=== PATIENT | male | born 1990 | race Caucasian/White ===

== ENCOUNTER 2023-09-24 15:10 | Emergency (ER) | payer OTHER ==
[~2023-09-24] VITALS: Ht 165.1 cm; Wt 83.9 kg
[~2023-09-24 15:10] MED LIST: IBUP-1842 PO
[2023-09-24 15:18] VITALS: BP 160/108; PULSE 90; RESP 16; TEMP 98.8; O2SAT 100
[2023-09-24 16:56] LABS: APPEARANCE,URINE CLEAR (CLEAR); BILIRUBIN,URINE NEGATIVE (NEGATIVE); BLOOD, URINE TRACE-I (NEGATIVE); COLOR,URINE YELLOW (YELLOW); LEUKOCYTE ESTERASE ,URINE NEGATIVE (NEGATIVE); NITRITE, URINE NEGATIVE (NEGATIVE); PROTEIN,URINE NEGATIVE (NEGATIVE); UGLUCOSE NEGATIVE (NEGATIVE); UROBILINOGEN,URINE 0.2 EU/dL (0.2 - 1)
== END 2023-09-24 16:42 | disposition left against medical advice (07) ==
LOC: MED 15:10
DX: N50.811 Right testicular pain (principal); N50.89 Other specified disorders of the male genital organs; Z53.21 Procedure and treatment not carried out due to patient leaving prior to being seen by health care provider
CPT/HCPCS: 76870; 81003; 87086; 87491; 99281